=== PATIENT | male | born 1960 | race Caucasian/White ===

== ENCOUNTER 2020-10-02 17:40 | Outpatient (RCR) | payer OTHER, SELFPAY ==
[2020-10-02] MEDS: COVID-19 VACC, MRNA(PFIZER)/PF 30 MCG/0.3 ML SYRINGE IM (16:00)
[2020-10-23] MEDS: COVID-19 VACC, MRNA(PFIZER)/PF 30 MCG/0.3 ML SYRINGE IM (15:49)
== END 2020-12-30 23:59 ==
LOC: IMMUN 17:40
PROVIDERS: Visit Provider Family Medicine
DX: Z23 Encounter for immunization (principal)
CPT/HCPCS: 0001A; 0002A; 91300

== ENCOUNTER 2023-05-10 10:26 | Emergency (ER) | payer OTHER, SELFPAY ==
[2023-05-10 10:27] VITALS: BP 180/83; PULSE 88; RESP 20; TEMP 36.1; O2SAT 98; BMI 32.1
--- NOTE | 2023-05-10 11:15 | CT_ITS ---
EXAM: CT CERVICAL SPINE WITHOUT INTRAVENOUS CONTRAST CLINICAL INDICATION: Neck injury with pain. TECHNIQUE: Helically acquired images were obtained of the cervical spine without intravenous contrast. 2D reformatted images were reviewed. This CT exam was performed using one or more of the following dose reduction techniques: automated exposure control, adjustment of the mA and/or kV according to patient size, and/or use of iterative reconstruction technique. RADIATION DOSE: CTDIvol = 22.64 mGy, DLP = 498.92 mGy-cm COMPARISON: No relevant prior studies available. FINDINGS: VERTEBRAE: Unremarkable. No traumatic subluxation. No discrete lytic or blastic abnormality. Normal craniocervical junction and cervicothoracic junction. Normal vertebral body heights. Normal alignment. DISCS/SPINAL CANAL/NEURAL FORAMINA: Moderate C4-C5 disc space height narrowing with asymmetric bone spurs causing moderate stenosis of the left intervertebral neural foramen and mild stenosis of the right intervertebral neural foramen. Moderate C5-C6 disc space height narrowing with normal central canal and intervertebral neural foramina. Normal remaining cervical disc space heights. SOFT TISSUES: Unremarkable. No prevertebral soft tissue swelling. LYMPH NODES: Unremarkable. No cervical adenopathy. LUNG APICES: Paraseptal cysts in both lung apices with breathing motion artifacts. CT/Spine Cervical without Contras IMPRESSION: 1. No CT evidence of acute fracture or malalignment of the cervical spine, craniocervical junction and cervicothoracic junction. 2. Moderate C4-C5 degenerative disc space height narrowing with moderate stenosis of the left intervertebral neural foramen and mild stenosis of the right intervertebral neural foramen due to osteophytes arising from the uncovertebral joints. 3. Moderate C5-C6 degenerative disc space height narrowing without associated spinal stenosis. 4. Multiple paraseptal cysts in both lung apices. Electronically Signed: Froy Rebolledo MD at 12:18 EDT ,
[2023-05-10] MEDS: Orphenadrine 60 MG/2 ML Ampul IM (11:28)
[2023-05-10] MEDS: Ketorolac 30 MG/ML Syringe IM (11:29)
--- NOTE | 2023-05-10 12:19 | EDS_ITS ---
HPI History of Present Illness HPI Narrative: Patient presents with left neck and shoulder pain that began yesterday. Patient states he came on gradually. Patient states it has been constant. Patient describes it as sharp and cramping. Patient states it is worse with movement of his neck especially with turning to the left and sidebending to the left. Patient states the pain radiates into his left shoulder. Patient denies any paresthesias or weakness. Patient denies any pain down his arm. Patient denies any chest pain or shortness of breath. Patient denies any nausea or vomiting. Patient denies any trauma or injury. Chief Complaint: Upper Extremity Injury Informant: patient Onset/Context/Timing Onset: Yesterday Context: Gradual Onset Timing: Continuous Quality of Pain: Sharp and Aching Location: Left neck and left shoulder Worsened by: Movement Relieved by: Rest Associated Symptoms Associated Symptoms: Negative for Parasthesia or Weakness [facility] Medical History HTN (hypertension) Home Medications cyclobenzaprine 10 mg tablet 10 mg PO QHS PRN PRN Muscle Spasm #10 TABLETS 05/10/23 [Rx Last Taken Unknown] hydrocodone-acetaminophen 5-325mg 5mg-325mg 1 tab PO Q6H PRN PRN Pain 3 days #10 TABLETS 05/10/23 [Rx Last Taken Unknown] Allergy/AdvReac Type Severity Reaction Status Date / Time No Known Allergies Allergy Verified 05/10/23 10:28 Surgical History H/O hernia repair Knee joint replacement status Social History Smoking Status: Former smoker ROS ROS ED Constitutional Constitutional ED: Denies chills or fever(s) Eyes Eyes: Denies blurry vision or change in vision ENT ENT ED: Denies rhinorrhea or sore throat Cardiovascular Cardiovascular: Denies chest pain or palpitations Respiratory/Chest Respiratory/Chest: Denies cough or dyspnea Gastrointestinal Gastrointestinal: Denies nausea or vomiting Genitourinary Genitourinary ED: Denies dysuria or hematuria Musculoskeletal Musculoskeletal: Reports neck pain; Denies back pain Integumentary Denies abscess or rash Neurologic Neurologic: Denies headache(s) or weakness Allergic/Immunologic Allergic/Immunologic ED: Denies mouth swelling or urticaria EXAM Physical Exam Const Vital Signs: 05/10/23 10:27 Temperature 97.0 F L Temperature Source Temporal Pulse Rate 88 Respiratory Rate 20 H Blood Pressure 180/83 H Blood Pressure Mean 115 Pulse Ox 98 Oxygen Delivery Method Room Air Positive well nourished and well developed General Appearance ED: well developed and NAD HEENT Reports moist mucous membranes Neck Neck Narrative: There is tenderness and spasm of the left cervical paraspinal muscles. There is no midline tenderness. There is no bony crepitance or step-off. There is a positive Spurling's test on the left. Strength is 5/5 bilaterally in the upper extremities. There are no sensory deficits noted. Radial pulses are equal bilaterally. Resp normal respiratory effort and clear to auscultation bilaterally Cardio regular rate and regular rhythm Neuro oriented x3, CN's II-XII intact bilaterally, moves all extremities, no focal motor deficits and no sensory deficits noted Sensorium / Orientation: alert Motor Exam: strength 5/5 throughout Psych mental status grossly normal MDM MDM MDM Narrative Medical decision making narrative: Differential diagnosis includes herniated cervical disc, occult cervical spine fracture, cervical strain, and radiculopathy. CT scan of the cervical spine will be obtained to assess for occult cervical spine fracture. Radiography Diagnostic Testing: CT scan of the cervical spine was obtained. There are some degenerative changes noted. There is no acute fracture noted. This was interpreted by the radiologist and was also independently reviewed by myself. Treatment and Re-Evaluation Narrative: Patient was given a dose of Toradol and Norflex here. Patient is feeling somewhat better on reevaluation. Patient was given a prescription for Flexeril to take at bedtime. Patient was given a prescription for a short course of [place]. Patient was given a work note for tomorrow. Patient was instructed to do range of motion exercises. Patient was instructed to follow-up with his primary care physician in 5 to 7 days. Patient understood and was agreeable with the plan. All questions were answered. Discharge Plan Triage Chief Complaint: Upper Extremity Injury ED Provider: William Moulton Dx/Rx/DC Orders Clinical Impression: Acute cervical myofascial strain, Chronic osteoarthritis Instructions: ED Neck Sprain or Strain Prescriptions: New cyclobenzaprine [cyclobenzaprine] 10 mg tablet 10 mg PO QHS PRN PRN (Reason: Muscle Spasm) Qty: 10 0RF hydrocodone-acetaminophen [hydrocodone-acetaminophen] 5-325 mg tablet 1 tab PO Q6H PRN PRN (Reason: Pain) 3 Days Qty: 10 0RF Stand Alone Forms: ED Work / School Excuse Primary Care Provider: Oxana Rubin Referrals: Oxana Rubin MD [Primary Care Provider] - 5-7 Days Disposition Disposition: Home, Self Care
[2023-05-10 13:03] VITALS: BP 129/88; PULSE 71; RESP 16; O2SAT 98
== END 2023-05-10 13:04 | disposition home or self-care (01) ==
PROVIDERS: Emergency Provider Emergency Medicine; PCP Family Medicine; Visit Provider Emergency Medicine
DX: S16.1XXA Strain of muscle, fascia and tendon at neck level, initial encounter (principal); Z87.891 Personal history of nicotine dependence; I10 Essential (primary) hypertension; M47.812 Spondylosis without myelopathy or radiculopathy, cervical region; X58.XXXA Exposure to other specified factors, initial encounter
CPT/HCPCS: 72125; 99282